=== PATIENT | male | born 1990 | race Caucasian/White ===

== ENCOUNTER 2017-07-26 10:23 | Emergency (ER) | payer MEDICAID ==
[~2017-07-26] VITALS: Ht 175.3 cm; Wt 88.0 kg
[2017-07-26 10:32] VITALS: Ht 175.3 cm; Wt 88.0 kg
[2017-07-26 13:58] VITALS: BP 135/103
== END 2017-07-26 13:58 | disposition home or self-care (01) ==
LOC: ED 10:23
DX: R10.12 Left upper quadrant pain (principal); R11.2 Nausea with vomiting, unspecified; J45.909 Unspecified asthma, uncomplicated
CPT/HCPCS: Q0162